=== PATIENT | male | born 1965 | race African-American/Black ===

== ENCOUNTER 2016-09-03 07:29 | Emergency (ER) | payer OTHER ==
[2016-09-03 07:33] VITALS: BP 199/107
--- NOTE | 2016-09-03 07:33 | ED.REPORT ---
HPI-Neurologic Deficit Date of Service Sep 03, 2016 ED Provider: Han Bauer MD The patient is a 51 year old male w/ a hx of DM and HTN on lisinopril who presents to the ED due to intermittent facial asymmetry onset yesterday morning. The ride side of his mouth was shaking, his right eye was watering, and his forehead was twitching. He has never experienced any symptoms like this before. He doesn't smoke and has no hx of heart, kidney disease, or cancer. He denies any extremity pain, loss of vision, fever, or abdominal pain. BP at ED is 199/107. Nursing Notes Stated Complaint: NUMBNESS ON LEFT SIDE OF FACE/BLURRY VISION Chief Complaint: Neuro Symptoms/ Deficits Nursing Notes Reviewed: Yes Scheduled Acyclovir (Acyclovir) 800 Mg Tab 800 MG PO 5XD Prednisone (PredniSONE) 20 Mg Tablet 40 MG PO DAILY General Time Seen by Provider: 07:38 Chief Complaint Other (facial asymmetry) Hx Obtained From: Patient Arrived By: Walk-in Sudden in Onset?: Yes Onset Occurred: Yesterday Symptom Duration: Since onset Severity: Current: No pain currently Recent Healthcare: No recent doctor visit, No recent hospitalization Similar Sx Previous: No Past Medical History Past Medical History Reports: Diabetes mellitus, Hypertension Past Surgical History denies Smoking History Never Smoker Social History Drug Use: Denies drug use Other Social History: Local resident Ambulatory Status Independent Review of Systems Review of Systems Note: extremity pain, loss of vision, fever, or abdominal pain Constitutional: Denies: Fever Eyes: Denies: Visual loss bilateral GI: Denies: Abdominal pain Musculoskeletal: Denies: Extremity pain Neurologic: Reports: Shaking, Denies: Numbness Complete sys rev & neg: except as marked. Physical Exam Initial Vital Signs Vital Signs (First) Date Time Temp Pulse Resp B/P Pulse Ox O2 Delivery O2 Flow Rate FiO2 09/03/16 07:33 199/107 09/03/16 07:39 120 18 99 Room Air 09/03/16 07:41 36.8 Initial VS: Reviewed ENT: Mucous membranes moist, Conjunctiva normal Abdomen / GI: Soft, No guarding Extremities: Vascular intact, No swelling Skin: Warm, Dry General/Constitutional: Awake, Alert, Cooperative, Not toxic appearing Head / Eyes: Atraumatic, Normocephalic, PERRL Respiratory / Chest: Atraumatic, Breath sounds NL, Breath sounds = bilat Cardiovascular: Heart rate NL, Regular rhythm, Heart sounds NL Neurologic: Oriented X3, Speech NL, No motor deficits, No sensory deficits, CN II - XII intact (except as noted below), Cerebellar NL, Memory NL, Gait NL Cranial Nerve Deficit: Negative: 3 - medial gaze asym, 4 - vertical gaze asym, 6 - lateral gaze asym, 11 - asym shoulder shrug, 12 - tongue tremor/fascic Gait Abnormality: Negative: Antalgic gait weak forehead, lower face and eyelid closing on the right Re-Eval/Medical Decision Re-Evaluation/Progress : Time of Eval: 08:00 Patient Status: Condition improved Re-Evaluation/Progress Note: Pt rechecked. 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 F/U and RTER warnings given. Pt understands and agrees with plan. Counseled Regarding: Diagnosis, Lab results, Need for follow-up, When/why to return to ED Discharge & Departure Impression: Primary Impression: Facial nerve palsy Disposition: Home Discharge Condition All VS Reviewed: Yes Condition: Stable Patient Instructions: Garcia's Palsy (ED) Additional Instructions: You are not experiencing a stroke. 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 The steroid medicine will elevate your blood sugar for a few days, but it should improve the odds that this will go away completely. Take acyclovir 5x/day, for seven days. These medicines will not cure this problem, but they will help symptoms go away faster and more completely. These medicines decrease the chance that your symptoms will last for a longer time. To help with eye dryness, lemon picker some moisturizing drops, at nighttime use product called Celluvisc or similar. Follow up with your primary care physician as needed. Return to the Emergency Department for any new or worsening symptoms including numbness or weakness in arms, legs or difficulty speaking or with vision. Referrals: [facility] Scribe Attestation Portion of this note were transcribed by Rebecca Fuller. I, Dr. Bauer, personally performed the history, physical exam, and medical decision-making: I reviewed and confirmed the accuracy for the information in the transcribed note. Signed by: vernell Dupree, 09/23/16 0800 copies to: [facility] Han Bauer MD Sep 03, 2016 07:33 Rebecca Fuller Sep 03, 2016 07:41
[2016-09-03 07:39] VITALS: BP 169/123; PULSE 120; RESP 18; O2SAT 99
[2016-09-03] MEDS ORDERED: ZOV800 PO (08:02)
[2016-09-03] MEDS ORDERED: PRE20 PO (08:02)
== END 2016-09-03 07:55 | disposition home or self-care (01) ==
LOC: SED 07:29
DX: G51.0 Bell's palsy (principal); I10 Essential (primary) hypertension; E11.9 Type 2 diabetes mellitus without complications